=== PATIENT | male | born 1960 | race Caucasian/White ===

== ENCOUNTER 2017-01-25 16:26 | Emergency (ER) | payer BC ==
[2017-01-25] MEDS ORDERED: methylPREDNISolone Sodium Succinate 125 MG/2 ML SDV IV ONE (16:33)
[2017-01-25] MEDS ORDERED: Sodium Chloride 0.9% 10 ML Syringe FLUSH PRN (16:33)
[2017-01-25] MEDS ORDERED: Famotidine 20 MG/2 ML SDV IVPUSH ONE (16:33)
--- NOTE | 2017-01-25 16:38 | EDM.PDOC ---
ED HPI Allergic Reaction - General Chief Complaint: Allergic Reaction Stated Complaint: ALLERGIC REACTION Time Seen by Provider: 01/25/17 16:34 Source of Information: Reports: Patient History Limitations: Reports: No limitations - History of Present Illness INITIAL COMMENTS - FREE TEXT/NARRATIVE: Pt states that he ate chicken and he is allergic and began having hives and some chest tightness. 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: Other medication(s) (Benadryl 50 mg) - Related Data Allergies/ADRs: Allergies Allergy/AdvReac Type Severity Reaction Status Date / Time chicken products Allergy Rash Uncoded 02/16/15 16:38 seafood Allergy Hives Uncoded 01/25/17 16:58 Social & Family History - Tobacco Use Smoking Status *Q: Never Smoker ED ROS ALLERGIC REACTION - Review of Systems Review Of Systems: See Below Immunologic: Reports: food allergy ED EXAM GENERAL NO PERIP PULSE - Physical Exam Exam: See Below Exam Limited By: No limitations General Appearance: alert, WD/WN, no apparent distress Eye Exam: bilateral eye: PERRL Ears: normal external exam, normal canal, hearing grossly normal, normal TMs Nose: normal inspection, normal mucosa, no blood Throat/Mouth: Normal inspection, Normal lips, Normal teeth, Normal gums, Normal oropharynx, Normal voice, No airway compromise Head: atraumatic, normocephalic Neck: normal inspection, supple, non-tender, full range of motion Respiratory/Chest: no respiratory distress, lungs clear, normal breath sounds, no accessory muscle use, chest non-tender Cardiovascular: normal peripheral pulses, regular rate, rhythm, no edema, no gallop, no JVD, no murmur, no rub Neurological: alert, oriented, CN II-XII intact, normal cognition, normal gait, normal reflexes, no motor/sensory deficits Skin Exam: Rash (hives diffusely ) Course - Vital Signs Last Recorded V/S: Last Vital Signs Temp 96.9 F 01/25/17 16:51 Pulse 91 01/25/17 16:51 Resp 20 01/25/17 16:51 BP 124/77 01/25/17 16:51 Pulse Ox 98 01/25/17 16:51 - Orders/Labs/Meds Orders: Active Orders 24 hr Category Date Time Status Sodium Chloride 0.9% [Normal Saline] 1,000 ml Med 01/25/17 16:45 Active IV .BOLUS Sodium Chloride 0.9% [Saline Flush] Med 01/25/17 16:33 Active 10 ml FLUSH ASDIRECTED PRN Saline Lock Insert [OM.PC] Stat Oth 01/25/17 16:33 Ordered Medication Orders Sodium Chloride (Normal Saline) 1,000 mls @ 500 mls/hr IV .BOLUS MIL Last Admin: 01/25/17 16:40 Dose: 500 mls/hr Sodium Chloride (Saline Flush) 10 ml FLUSH ASDIRECTED PRN PRN Reason: Keep Vein Open Meds: Medications Generic Name Dose Route Start Last Admin Trade Name Freq PRN Reason Stop Dose Admin Sodium Chloride 1,000 mls @ 500 mls/hr 01/25/17 16:45 01/25/17 16:40 Normal Saline IV 500 mls/hr .BOLUS MIL Administration Sodium Chloride 10 ml 01/25/17 16:33 Saline Flush FLUSH ASDIRECTED PRN Keep Vein Open Discontinued Medications Generic Name Dose Route Start Last Admin Trade Name Freq PRN Reason Stop Dose Admin Diphenhydramine HCl 50 mg 01/25/17 17:24 01/25/17 17:30 Benadryl IVPUSH 01/25/17 17:25 50 mg ONETIME ONE Administration Famotidine 20 mg 01/25/17 16:33 01/25/17 16:43 Pepcid IVPUSH 01/25/17 16:34 20 mg ONETIME ONE Administration Methylprednisolone Sodium Succinate 125 mg 01/25/17 16:33 01/25/17 16:42 Solu-Medrol IV 01/25/17 16:34 125 mg ONETIME ONE Administration - Re-Assessments/Exams Free Text/Narrative Re-Assessment/Exam: 01/25/17 18:25 Pt feels better, no diffuculty in breathing, no rash noted. redness has subsided. ambulatory to restroom with no assistance. Departure - Departure Time of Disposition: 18:27 Disposition: Home, Self-Care 01 Condition: good Clinical Impression: Allergic reaction Qualifiers: Encounter type: initial encounter Qualified Code(s): T78.40XA - Allergy, unspecified, initial encounter Instructions: Anaphylactic Reaction, Allergies Referrals: Derrick Benites MD [Primary Care Provider] - Additional Instructions: Continue to take the Benadryl as needed. Return for any worsenign symptoms or Shortness of breath. Follow up with PCP or clinic as needed. - My Orders Last 24 Hours: My Active Orders 01/25/17 16:33 Sodium Chloride 0.9% [Saline Flush] 10 ml FLUSH ASDIRECTED PRN Saline Lock Insert [OM.PC] Stat 01/25/17 16:45 Sodium Chloride 0.9% [Normal Saline] 1,000 ml IV .BOLUS - Assessment/Plan Last 24 Hours: My Active Orders 01/25/17 16:33 Sodium Chloride 0.9% [Saline Flush] 10 ml FLUSH ASDIRECTED PRN Saline Lock Insert [OM.PC] Stat 01/25/17 16:45 Sodium Chloride 0.9% [Normal Saline] 1,000 ml IV .BOLUS
[2017-01-25] MEDS ORDERED: Sodium Chloride 0.9% 1,000 ML IV SCH (16:45)
[2017-01-25 16:53] VITALS: BP 124/77
[2017-01-25] MEDS ORDERED: diphenhydrAMINE 50 MG/ML SDV IVPUSH ONE (17:24)
== END 2017-01-25 18:49 | disposition home or self-care (01) ==
LOC: DL.ED 16:26
DX: T78.1XXA Other adverse food reactions, not elsewhere classified, initial encounter (principal); L50.9 Urticaria, unspecified; Z91.013 Allergy to seafood
CPT/HCPCS: 71020; 96361; 96374; 96375; 99283; J1200; J2930; J7030; S0028

== ENCOUNTER 2017-11-26 06:23 | Day surgery (SDC) | payer BC ==
[~2017-11-26 06:23] MED LIST: Dextrose 5%-0.45% NaCl 1,000 ML IV SCH; Midazolam 1 MG/ML 2 ML SDV ONE; Sodium Chloride 0.9% 10 ML Syringe FLUSH PRN; fentaNYL 100 MCG/2 ML SDV ONE
[2017-11-26] MEDS ORDERED: Midazolam 1 MG/ML 2 ML SDV IV ONE ×7 (06:24→07:42)
[2017-11-26] MEDS ORDERED: fentaNYL 100 MCG/2 ML SDV IV ONE ×3 (06:24→07:36)
--- NOTE | 2017-11-26 11:20 | OR ---
DATE: 11/26/2017 PROCEDURE: Total colonoscopy. INSTRUMENT USED: CF-H180AL Olympus video colonoscope. PREMEDICATIONS: Fentanyl 100 mcg intravenous, Versed 4 mg intravenous. Nasal O2 cannula. The procedure was done under pulse oximetry, BP recording, and patient monitor. INDICATION: Screening colonoscopic examination is done for detection of any polypoid lesions and removal, endoscopic hemostasis therapy if needed. DESCRIPTION OF PROCEDURE: Initial rectal exam was unremarkable. Rigid anoscopy was normal. The colonoscope was passed with ease. Few scattered diverticula were noted in the distal left colon along with deformity. The scope was passed with ease up to the ileocecal area, photographs were taken of normal-appearing cecum identified by the landmarks of appendiceal orifice and double-bulged ileocecal folds. No bleeding was noted from any of the visualized areas at the commencement of examination. No stricture. No vascular ectasia. No large isolated ulcerations seen. No evidence of diffuse inflammatory bowel disease in the form of friability, contact bleeding, or ulcerations. No polyp or tumor mass identified. Probing the proximal sides of folds flexures and removal of the fecal material, the scope was withdrawn, cecum to rectum time over 6 minutes. No bleeding was noted from any of the visualized areas at the completion of examination. IMPRESSION: Diverticulosis. The patient tolerated the procedure well. [facility] /[id number]
[2017-11-26 15:30] VITALS: BP 124/54
== END 2017-11-26 09:56 | disposition home or self-care (01) ==
LOC: DL.ENDO 06:23
PROVIDERS: ATTEND Internal Medicine Gastroenterology
DX: Z12.11 Encounter for screening for malignant neoplasm of colon (principal); K57.30 Diverticulosis of large intestine without perforation or abscess without bleeding; E78.5 Hyperlipidemia, unspecified; K21.9 Gastro-esophageal reflux disease without esophagitis; F41.1 Generalized anxiety disorder; E66.9 Obesity, unspecified
CPT/HCPCS: 45378; J2250; J3010; J7042

== ENCOUNTER 2018-03-22 06:58 | Day surgery (SDC) | payer BC ==
[2018-03-22] MEDS ORDERED: fentaNYL 100 MCG/2 ML SDV IV ONE ×3 (06:59→07:42)
[2018-03-22] MEDS ORDERED: Midazolam 1 MG/ML 2 ML SDV IV ONE ×3 (06:59→07:43)
[2018-03-22] MEDS ORDERED: Dextrose 5%-0.45% NaCl 1,000 ML IV SCH (07:45)
--- NOTE | 2018-03-22 08:41 | OR ---
DATE: 03/22/2018 PROCEDURES PERFORMED: Esophagogastroduodenoscopy, NBI, and multiple pinch biopsies. INSTRUMENT USED: GIF-H180 Olympus video panendoscope. PREMEDICATIONS: No oral topical anesthesia used. Fentanyl 100 mcg intravenous and Versed 2 mg IV. The procedure was done under pulse oximetry, BP recording, and yoke presser. INDICATION: The patient with known esophageal eosinophilia treated with PPI for the past more than 2 months. Followup esophagogastroduodenoscopy is performed for reassessment of the esophagus and biopsies or any persistent esophageal eosinophilia, eosinophilic esophagitis under consideration, esophageal dilatations if indicated, endoscopic hemostasis therapy if needed. DESCRIPTION OF PROCEDURE: The scope was passed with ease. Adequate visualization of the esophagus was made from proximal to distal areas. No upper esophageal lesions identified. No uphill or downhill esophageal varices. No Raquel-Parker tear. No evidence of erosive esophagitis by Sunset criteria. Some longitudinal furrows and ringed configuration noted, features consistent with eosinophilic esophagitis, NBI views were taken, photographs were obtained. Gastric fundus examination by retroflexion showed multiple benign-appearing diminutive polyps. No proximal gastric varices noted. No gastric ulcer, malignant mass, or vascular ectasia identified. Duodenal bulb showed no ulcer. Visualized second part of the duodenum was unremarkable. Four-quadrant biopsies were taken from the distal and proximal esophagus and sent for any histopathologic evidence of eosinophilic esophagitis. No bleeding was noted from any of the visualized areas at the completion of examination. Photographs were taken of the duodenal bulb, gastric antrum and fundus, and distal esophagus. IMPRESSION: 1. Diminutive gastric fundus polyps. 2. Esophageal eosinophilia. The patient tolerated the procedure well. [facility] /[id number]
[2018-03-22 10:28] VITALS: BP 112/80
== END 2018-03-22 09:48 | disposition home or self-care (01) ==
LOC: DL.ENDO 06:58
PROVIDERS: ATTEND Internal Medicine Gastroenterology
DX: K20.0 Eosinophilic esophagitis (principal); K22.8 Other specified diseases of esophagus; K21.9 Gastro-esophageal reflux disease without esophagitis; Z91.013 Allergy to seafood; Z91.018 Allergy to other foods; J30.1 Allergic rhinitis due to pollen
CPT/HCPCS: 43239; J7042; J2250; J3010

== ENCOUNTER 2023-05-20 18:17 | Emergency (ER) | payer BC ==
[2023-05-20 18:35] LABS: BASOPHILS PERCENT AUTO 0.6 % (0.0-1.0); EOSINOPHILS PERCENT AUTO 1.6 % (1.0-3.0); HEMATOCRIT 43.8 % (40.0-54.0); HEMOGLOBIN 14.5 g/dL (14.0-18.0); LYMPHOCYTES PERCENT AUTO 21.2 % (20.5-50.1); MEAN CORPUSCULAR HEMOGLOBIN 30.7 pg (27.0-34.0); MEAN CORPUSCULAR HGB CONC 33.1 g/dL (33.0-35.0); MEAN CORPUSCULAR VOLUME 92.6 fL (80-100); MONOCYTES PERCENT AUTO 12.4 % (2-8); NEUTROPHILS PERCENT AUTO 64.2 % (42.2-75.2); PLATELET COUNT,PLT 176 10^3/uL (150-450); RED BLOOD CELL COUNT 4.73 10^6/uL (4.6-6.2); WHITE BLOOD CELL COUNT,WBC 10.3 10^3/uL (5.0-10.0)
[2023-05-20] MEDS ORDERED: Naloxone 2 MG/2 ML Syringe IVPUSH PRN (18:44)
[2023-05-20] MEDS: Nitroglycerin 0.4 MG Tab.SL SL ONE (18:53)
[2023-05-20] MEDS: Morphine 2 MG/ML SYRINGE IVPUSH ONE (18:53)
[2023-05-20] MEDS: Sodium Chloride 0.9% 10 ML Syringe FLUSH PRN (18:53)
[2023-05-20 18:56] LABS: A/G RATIO 1.1; ALBUMIN 3.7 g/dL (3.4-5.0); ANION GAP 11.4 mEq/L (7-13); BILIRUBIN TOTAL 0.5 mg/dL (0.2-1.0); BUN/CREATININE RATIO 16.1 (No establ ref range); C-REACTIVE PROTEIN 0.5 mg/dL (0.0-0.9); CALCIUM 8.5 mg/dL (8.5-10.1); CREATININE 0.93 mg/dL (0.70-1.30); EST CRCL DRUG DOSING (CG) 81.72 mL/min; MAGNESIUM 1.8 mg/dL (1.8-2.4); POTASSIUM,K 4.4 mmol/L (3.5-5.1); PROTEIN TOTAL,TP 7.1 g/dL (6.4-8.2)
[2023-05-20 19:16] VITALS: BP 96/66; PULSE 88
[2023-05-20 19:19] LABS: LACTIC ACID 1.4 mmol/L (0.4-2.0)
== END 2023-05-20 20:21 | disposition home or self-care (01) ==
LOC: DL.ED 18:17
DX: R07.9 Chest pain, unspecified (principal); K21.9 Gastro-esophageal reflux disease without esophagitis; E78.00 Pure hypercholesterolemia, unspecified; Z79.899 Other long term (current) drug therapy; Z91.018 Allergy to other foods; Z91.013 Allergy to seafood
CPT/HCPCS: 36415; 71045; 80053; 82150; 83605; 83690; 83735; 84484; 85025; 86140; 93005; 96374; 99285; A9270; J2270; J3490